=== PATIENT | female | born 1985 | race Caucasian/White ===

== ENCOUNTER 2017-05-15 09:51 | Emergency (ER) | payer MEDICAID ==
[2017-05-15] MEDS ORDERED: Acetaminophen/oxyCODONE 325-5 MG Tab PO ONE (10:25)
--- NOTE | 2017-05-15 10:29 | EDM.PDOC ---
ED HPI GENERAL MEDICAL PROBLEM - General Chief Complaint: ENT Problem Stated Complaint: TOOTH PAIN Time Seen by Provider: 05/15/17 10:26 Source of Information: Reports: Patient History Limitations: Reports: No Limitations - History of Present Illness INITIAL COMMENTS - FREE TEXT/NARRATIVE: pt has bilateral dental pain. She is rating her pain a 10. She has multiple carries. Onset: Gradual, Other (several days of pain) Duration: Day(s): Location: Reports: Face Associated Symptoms: Reports: No Other Symptoms Tooth/Teeth Pain Score (Numeric/FACES): 10 - Related Data Allergies Allergy/AdvReac Type Severity Reaction Status Date / Time bupivacaine HCl Allergy Severe Anaphylactic Verified 05/15/17 10:06 [From Marcaine] Shock sulfamethoxazole Allergy Severe Anaphylactic Verified 05/15/17 10:06 [From Bactrim] Shock triamcinolone acetonide Allergy Severe Anaphylactic Verified 05/15/17 10:06 [From Kenalog] Shock trimethoprim [From Bactrim] Allergy Severe Anaphylactic Verified 05/15/17 10:06 Shock amoxicillin [Amoxicillin] Allergy Hives Verified 05/15/17 10:06 Penicillins Allergy Hives Verified 05/15/17 10:06 Home Meds: Home Meds Albuterol Sulfate [Proair Hfa] 8.5 gm IH ASDIRECTED 05/24/13 [History] Albuterol [Ventolin HFA] 1 puff INH BID PRN 05/24/13 [History] Fluticasone/Salmeterol [Advair 100-50 Diskus] 1 puff INH BID 05/24/13 [History] [place]-3/DHA/Epa/Fish Oil [Fish Oil] 500 mg PO DAILY 05/24/13 [History] diphenhydrAMINE HCl [Benadryl] 25 mg PO QPM 05/24/13 [History] Dextroamphetamine/Amphetamine [Adderall] 30 mg PO DAILY 10/26/13 [History] Gabapentin [Neurontin] 600 mg PO TID 10/26/13 [History] Ibuprofen [Caldolor] 1 dose PO ASDIRECTED 02/03/14 [History] Pantoprazole Sodium [Protonix] 1 tab PO DAILY 05/15/17 [History] Past Medical History Respiratory History: Reports: Asthma Gastrointestinal History: Reports: Irritable Bowel Syndrome 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 Musculoskeletal History: Reports: Fibromyalgia Neurological History: Reports: Concussion, Headaches, Chronic Psychiatric History: Reports: Anxiety, PTSD - Past Surgical History GI Surgical History: Reports: Other (See Below) Female Surgical History: Reports: Oophorectomy, Tubal Ligation Social & Family History - Tobacco Use Smoking Status *Q: Heavy Tobacco Smoker Years of Tobacco use: 20 Packs/Tins Daily: 1 Used Tobacco, but Quit: No Second Hand Smoke Exposure: Yes - Alcohol Use Days Per Week of Alcohol Use: 0 - Recreational Drug Use Recreational Drug Use: Yes Recreational Drug Type: Reports: Marijuana/Hashish Recreational Drug Use Frequency: Weekly ED ROS ENT - Review of Systems Review Of Systems: See Below Constitutional: Reports: No Symptoms HEENT: Reports: Dental Pain Respiratory: Reports: No Symptoms Cardiovascular: Reports: No Symptoms Endocrine: Reports: No Symptoms GI/Abdominal: Reports: No Symptoms ED EXAM, ENT - Physical Exam Exam: See Below Text/Narrative:: pt arrived with bilateral dental pain. She has multiple carrious teeth and is now starting to have aklot of pain. Exam Limited By: No Limitations General Appearance: Alert Ears: Normal TMs Nose: Normal Inspection Mouth/Throat: Dental Pain, Dental Tenderness, Other (pt has multiple carrious teeth. ) Head: Atraumatic Neck: Other (mild glandular swelling. ) Respiratory/Chest: No Respiratory Distress Cardiovascular: Regular Rate, Rhythm GI/Abdominal: Soft, Non-Tender Course - Vital Signs Last Recorded V/S: Last Vital Signs Temp 36.1 C 05/15/17 10:05 Pulse 94 05/15/17 10:05 Resp 16 05/15/17 10:05 BP 162/104 H 05/15/17 10:05 Pulse Ox 100 05/15/17 10:05 - Orders/Labs/Meds Meds: Medications Discontinued Medications Generic Name Dose Route Start Last Admin Trade Name Freq PRN Reason Stop Dose Admin Oxycodone/Acetaminophen 1 tab 05/15/17 10:25 Percocet 325-5 Mg PO 05/15/17 10:26 ONETIME ONE - Re-Assessments/Exams Free Text/Narrative Re-Assessment/Exam: 05/15/17 10:36 pt was given a percocet 5/325 . Departure - Departure Time of Disposition: 10:27 Disposition: Home, Self-Care 01 Condition: Fair Clinical Impression: Pain, dental - Discharge Information Referrals: PCP,None [Primary Care Provider] - Forms: ED Department Discharge Care Plan Goals: dental referal, motrin 600mg tid, norco 5/325 q6h prn for pain # 10, keflex 500mg tid.
== END 2017-05-15 10:46 | disposition home or self-care (01) ==
LOC: JP.ED 09:51
DX: K08.89 Other specified disorders of teeth and supporting structures (principal); F17.210 Nicotine dependence, cigarettes, uncomplicated; Z79.899 Other long term (current) drug therapy; Z88.0 Allergy status to penicillin; Z88.1 Allergy status to other antibiotic agents; Z88.8 Allergy status to other drugs, medicaments and biological substances; Z88.2 Allergy status to sulfonamides
CPT/HCPCS: 99283; A9270

== ENCOUNTER 2017-06-09 12:43 | Emergency (ER) | payer MEDICAID ==
--- NOTE | 2017-06-09 14:14 | EDM.PDOC ---
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 Time Seen by Provider: 06/09/17 13:50 Source of Information: Reports: Patient History Limitations: Reports: No Limitations - History of Present Illness INITIAL COMMENTS - FREE TEXT/NARRATIVE: 32-year-old female is in to the emergency room basically for a urine test. For the past week she feels she's had breast tenderness, pelvic fullness, and intermittent spotting and cramping and wants to make sure she doesn't have an "ectopic ". She hasn't gone to the store to get a test because she couldn't get a ride. She also wants to be checked for ovarian cancer. I reviewed her past records, and I saw this patient a few years ago with a similar presentation where she demanded numerous tests including CT scans which were all normal. She just recently moved back to the area within the last few weeks. She denies any fevers or chills. Onset: Unknown/Unsure (Rate) - Related Data Allergies Allergy/AdvReac Type Severity Reaction Status Date / Time bupivacaine HCl Allergy Severe Anaphylactic Verified 06/09/17 13:15 [From Marcaine] Shock sulfamethoxazole Allergy Severe Anaphylactic Verified 06/09/17 13:15 [From Bactrim] Shock triamcinolone acetonide Allergy Severe Anaphylactic Verified 06/09/17 13:15 [From Kenalog] Shock trimethoprim [From Bactrim] Allergy Severe Anaphylactic Verified 06/09/17 13:15 Shock amoxicillin [Amoxicillin] Allergy Hives Verified 06/09/17 13:15 Penicillins Allergy Hives Verified 06/09/17 13:15 Home Meds: Home Meds Albuterol Sulfate [Proair Hfa] 8.5 gm IH ASDIRECTED 05/24/13 [History] Albuterol [Ventolin HFA] 1 puff INH BID PRN 05/24/13 [History] Fluticasone/Salmeterol [Advair 100-50 Diskus] 1 puff INH BID 05/24/13 [History] [place]-3/DHA/Epa/Fish Oil [Fish Oil] 500 mg PO DAILY 05/24/13 [History] diphenhydrAMINE HCl [Benadryl] 25 mg PO QPM 05/24/13 [History] Dextroamphetamine/Amphetamine [Adderall] 30 mg PO DAILY 10/26/13 [History] Gabapentin [Neurontin] 600 mg PO TID 10/26/13 [History] Ibuprofen [Caldolor] 1 dose PO ASDIRECTED 02/03/14 [History] Pantoprazole Sodium [Protonix] 1 tab PO DAILY 05/15/17 [History] Past Medical History Respiratory History: Reports: Asthma Gastrointestinal History: Reports: Irritable Bowel Syndrome 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 Musculoskeletal History: Reports: Fibromyalgia Neurological History: Reports: Concussion, Headaches, Chronic Psychiatric History: Reports: Anxiety, PTSD - Past Surgical History GI Surgical History: Reports: Other (See Below) Female Surgical History: Reports: Oophorectomy, Tubal Ligation Social & Family History - Tobacco Use Smoking Status *Q: Current Every Day Smoker Years of Tobacco use: 10 Packs/Tins Daily: 0.2 Used Tobacco, but Quit: No Second Hand Smoke Exposure: Yes - Alcohol Use Days Per Week of Alcohol Use: 0 - Recreational Drug Use Recreational Drug Use: Yes Recreational Drug Type: Reports: Marijuana/Hashish Recreational Drug Use Frequency: Weekly ED ROS GENERAL - Review of Systems Review Of Systems: See Below Constitutional: Reports: Malaise. Denies: Fever, Chills Respiratory: Denies: Shortness of Breath GI/Abdominal: Reports: Abdominal Pain, Nausea. Denies: Vomiting : Reports: Frequency, Incontinence Skin: Reports: No Symptoms Neurological: Denies: Headache ED EXAM, GI/ABD - Physical Exam Exam: See Below Exam Limited By: No Limitations General Appearance: Alert, No Apparent Distress Eyes: Bilateral: Normal Appearance Head: Atraumatic Respiratory/Chest: No Respiratory Distress, Lungs Clear Cardiovascular: Regular Rate, Rhythm GI/Abdominal Exam: Soft, Tender (A small amount of discomfort to palpation across the lower abdomen, no point tenderness or rebound) Course - Vital Signs Last Recorded V/S: Last Vital Signs Temp 97.7 F 06/09/17 13:22 Pulse 94 06/09/17 13:22 Resp 14 06/09/17 13:22 BP 146/113 H 06/09/17 13:22 Pulse Ox 96 06/09/17 13:22 - Orders/Labs/Meds Orders: Active Orders 24 hr Category Date Time Status HCG QUALITATIVE,URINE [URCHEM] Stat Lab 06/09/17 13:59 Ordered UA W/MICROSCOPIC [URIN] Urgent Lab 06/09/17 13:59 Ordered Labs: Laboratory Tests 06/09/17 06/09/17 Range/Units 13:59 13:59 Urine Color Yellow Urine Appearance Clear Urine pH 6.0 (4.5-8.0) Ur Specific [place] 1.020 (1.008-1.030) Urine Protein Negative (NEGATIVE) mg/dL Urine Glucose (UA) Normal (NEGATIVE) mg/dL Urine Ketones Negative (NEGATIVE) mg/dL Urine Occult Blood Negative (NEGATIVE) Urine Nitrite Negative (NEGATIVE) Urine Bilirubin Small (NEGATIVE) Urine Urobilinogen Normal (NORMAL) mg/dL Ur Leukocyte Esterase Negative (NEGATIVE) Urine RBC Not seen (0-5) Urine WBC 0-5 (0-5) Ur Epithelial Cells Moderate Amorphous Sediment Not seen Urine Bacteria Few Urine Mucus Moderate Urine HCG, Qual Negative - Re-Assessments/Exams Free Text/Narrative Re-Assessment/Exam: 06/09/17 14:16 A UA was obtained which was negative for infection or . I asked the patient to get a primary provider and recheck if symptoms are persistent. Departure - Departure Time of Disposition: 14:25 Disposition: Home, Self-Care 01 Condition: Good Clinical Impression: Pelvic pain - Discharge Information Instructions: Pelvic Pain, Female, [id number] Referrals: Joan Trujillo MD [Primary Care Provider] - Forms: ED Department Discharge Care Plan Goals: Tylenol or ibuprofen may help, continue activity as tolerated and recheck at the clinic if symptoms persist. - My Orders Last 24 Hours: My Active Orders 06/09/17 13:59 HCG QUALITATIVE,URINE [URCHEM] Stat UA W/MICROSCOPIC [URIN] Urgent - Assessment/Plan Last 24 Hours: My Active Orders 06/09/17 13:59 HCG QUALITATIVE,URINE [URCHEM] Stat UA W/MICROSCOPIC [URIN] Urgent
== END 2017-06-09 14:26 | disposition home or self-care (01) ==
LOC: JP.ED 12:43
DX: R10.2 Pelvic and perineal pain (principal); F17.210 Nicotine dependence, cigarettes, uncomplicated; Z79.899 Other long term (current) drug therapy; F41.9 Anxiety disorder, unspecified; Z88.8 Allergy status to other drugs, medicaments and biological substances; Z88.1 Allergy status to other antibiotic agents; Z88.0 Allergy status to penicillin
CPT/HCPCS: 81001; 81025; 99284

== ENCOUNTER 2017-06-20 16:54 | Emergency (ER) | payer MEDICAID ==
[2017-06-20] MEDS ORDERED: Lactated Ringers 1,000 ML IV ONE (18:03)
[2017-06-20] MEDS ORDERED: Metoclopramide 10 MG/2 ML SDV IVPUSH ONE (18:03)
[2017-06-20] MEDS ORDERED: Dicyclomine 10 MG Cap PO ONE (18:03)
[2017-06-20] MEDS ORDERED: Acetaminophen 500 MG Tab PO ONE (18:04)
--- NOTE | 2017-06-20 18:10 | EDM.PDOC ---
ED HPI GENERAL MEDICAL PROBLEM - General Chief Complaint: Gastrointestinal Problem Stated Complaint: ABD PAIN/VOMITING/DIARRHEA Time Seen by Provider: 06/20/17 17:55 Source of Information: Reports: Patient, Old Records, RN History Limitations: Reports: No Limitations - History of Present Illness INITIAL COMMENTS - FREE TEXT/NARRATIVE: 32 yo female developed nausea, vomiting and diarrhea last night that persists. Is dizzy with standing. No fever or bleeding. Unknown exposures. Abdominal cramping not resolved with ibuprofen before arrival. Has more diarrhea than vomiting. No recent antibiotics or hospitalizations. Onset: Gradual Onset Date: 06/19/17 Duration: Hour(s): (16), Constant Location: Reports: Abdomen Quality: Reports: Other (crampy) Severity: Moderate Improves with: Reports: None Worsens with: Reports: Eating Context: Reports: Sick Contact (uncertain of exposure) Associated Symptoms: Reports: Loss of Appetite, Nausea/Vomiting. 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 Abdomen Pain Score (Numeric/FACES): 10 - Related Data Allergies Allergy/AdvReac Type Severity Reaction Status Date / Time bupivacaine HCl Allergy Severe Anaphylactic Verified 06/20/17 17:30 [From Marcaine] Shock sulfamethoxazole Allergy Severe Anaphylactic Verified 06/20/17 17:30 [From Bactrim] Shock triamcinolone acetonide Allergy Severe Anaphylactic Verified 06/20/17 17:30 [From Kenalog] Shock trimethoprim [From Bactrim] Allergy Severe Anaphylactic Verified 06/20/17 17:30 Shock amoxicillin [Amoxicillin] Allergy Hives Verified 06/20/17 17:30 Penicillins Allergy Hives Verified 06/20/17 17:30 Home Meds: Home Meds Albuterol Sulfate [Proair Hfa] 8.5 gm IH ASDIRECTED 05/24/13 [History] Albuterol [Ventolin HFA] 1 puff INH BID PRN 05/24/13 [History] Fluticasone/Salmeterol [Advair 100-50 Diskus] 1 puff INH BID 05/24/13 [History] diphenhydrAMINE HCl [Benadryl] 25 mg PO QPM 05/24/13 [History] Dextroamphetamine/Amphetamine [Adderall] 30 mg PO DAILY 10/26/13 [History] Gabapentin [Neurontin] 600 mg PO TID 10/26/13 [History] Ibuprofen [Caldolor] 1 dose PO ASDIRECTED 02/03/14 [History] Pantoprazole Sodium [Protonix] 1 tab PO DAILY 05/15/17 [History] Past Medical History Respiratory History: Reports: Asthma Gastrointestinal History: Reports: Irritable Bowel Syndrome 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 Musculoskeletal History: Reports: Fibromyalgia Neurological History: Reports: Concussion, Headaches, Chronic Psychiatric History: Reports: Anxiety, PTSD - Past Surgical History GI Surgical History: Reports: Other (See Below) Female Surgical History: Reports: Oophorectomy, Tubal Ligation Social & Family History - Tobacco Use Smoking Status *Q: Unknown Ever Smoked ED ROS GENERAL - Review of Systems Review Of Systems: See Below Constitutional: Reports: Decreased Appetite HEENT: Reports: No Symptoms Respiratory: Reports: No Symptoms Cardiovascular: Reports: Lightheadedness Endocrine: Reports: No Symptoms GI/Abdominal: Reports: Abdominal Pain (crampy), Diarrhea, Decreased Appetite, Nausea, Vomiting. Denies: Black Stool, Bloody Stool, Constipation, Hematemesis , Hematochezia, Melena : Reports: No Symptoms Musculoskeletal: Reports: No Symptoms Skin: Reports: No Symptoms Neurological: Reports: No Symptoms ED EXAM, GI/ABD - Physical Exam Exam: See Below Exam Limited By: No Limitations General Appearance: Alert, WD/WN, No Apparent Distress Eyes: Bilateral: Normal Appearance, EOMI Ears: Normal External Exam, Normal Canal, Hearing Grossly Normal Nose: Normal Inspection, Normal Mucosa, No Blood Throat/Mouth: Normal Inspection, Normal Lips, Normal Oropharynx, Normal Voice, No Airway Compromise Head: Atraumatic, Normocephalic Neck: Normal Inspection, Supple, Non-Tender Respiratory/Chest: No Respiratory Distress, Lungs Clear, Normal Breath Sounds, No Accessory Muscle Use GI/Abdominal Exam: Normal Bowel Sounds, Soft, Non-Tender, No Distention. No: Guarding, Rigid, Rebound, Tender Back Exam: Normal Inspection Extremities: Normal Inspection, Normal Range of Motion, Non-Tender, No Pedal Edema Neurological: Alert, Oriented, CN II-XII Intact, Normal Cognition, No Motor/ Sensory Deficits Psychiatric: Normal Affect, Normal Mood Skin Exam: Warm, Dry, Intact, Normal Color, No Rash Course - Vital Signs Last Recorded V/S: Last Vital Signs Temp 36.7 C 06/20/17 17:27 Pulse 92 06/20/17 17:27 Resp 14 06/20/17 17:27 BP 151/106 H 06/20/17 17:27 Pulse Ox 97 06/20/17 17:27 - Orders/Labs/Meds Meds: Medications Discontinued Medications Generic Name Dose Route Start Last Admin Trade Name Joycelyn PRN Reason Stop Dose Admin Acetaminophen 1,000 mg 06/20/17 18:04 06/20/17 18:36 Tylenol Extra Strength PO 06/20/17 18:05 1,000 mg ONETIME ONE Administration Dicyclomine HCl 20 mg 06/20/17 18:03 06/20/17 18:42 Bentyl PO 06/20/17 18:04 20 mg ONETIME ONE Administration Diphenhydramine HCl 25 mg 06/20/17 18:31 06/20/17 18:38 Benadryl IVPUSH 06/20/17 18:32 25 mg ONETIME ONE Administration Lactated Ringer's 1,000 mls @ 1,000 mls/hr 06/20/17 18:03 06/20/17 18:19 Ringers, Lactated IV 06/20/17 19:02 1,000 mls/hr BOLUS ONE Administration Metoclopramide HCl 10 mg 06/20/17 18:03 06/20/17 18:20 Reglan IVPUSH 06/20/17 18:04 10 mg ONETIME ONE Administration Departure - Departure Time of Disposition: 19:20 Disposition: Home, Self-Care 01 Condition: Good Clinical Impression: Gastroenteritis - Discharge Information Referrals: Joan Trujillo MD [Primary Care Provider] - Forms: ED Department Discharge
[2017-06-20] MEDS ORDERED: diphenhydrAMINE 50 MG/ML SDV IVPUSH ONE (18:31)
== END 2017-06-20 19:30 | disposition home or self-care (01) ==
LOC: JP.ED 16:54
DX: K52.9 Noninfective gastroenteritis and colitis, unspecified (principal); F41.9 Anxiety disorder, unspecified; Z88.8 Allergy status to other drugs, medicaments and biological substances; Z88.2 Allergy status to sulfonamides; Z88.0 Allergy status to penicillin
CPT/HCPCS: 96361; 96374; 96375; 99284; A9270; J1200; J2765; J7120

== ENCOUNTER 2017-07-12 13:39 | Emergency (ER) | payer MEDICAID ==
[2017-07-12] MEDS ORDERED: Ondansetron 4 MG/2 ML SDV IVPUSH ONE (13:58)
--- NOTE | 2017-07-12 13:59 | EDM.PDOC ---
ED HPI GENERAL MEDICAL PROBLEM - General Chief Complaint: General Stated Complaint: POSSIBLE SIEZURE Time Seen by Provider: 07/12/17 13:45 Source of Information: Reports: Patient, EMS, RN History Limitations: Reports: Uncooperative (too intoxicated to answer questions accurately.) - History of Present Illness INITIAL COMMENTS - FREE TEXT/NARRATIVE: 32 yo female was sent in via EMS today by her significant other for extreme alcohol intoxication. Says she didn't intend to drink that much. Doesn't normally drink "that much". Has vomited several times before arrival. 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 (see below) (none) - Related Data Allergies Allergy/AdvReac Type Severity Reaction Status Date / Time bupivacaine HCl Allergy Severe Anaphylactic Verified 06/20/17 17:30 [From Marcaine] Shock sulfamethoxazole Allergy Severe Anaphylactic Verified 06/20/17 17:30 [From Bactrim] Shock triamcinolone acetonide Allergy Severe Anaphylactic Verified 06/20/17 17:30 [From Kenalog] Shock trimethoprim [From Bactrim] Allergy Severe Anaphylactic Verified 06/20/17 17:30 Shock amoxicillin [Amoxicillin] Allergy Hives Verified 06/20/17 17:30 Penicillins Allergy Hives Verified 06/20/17 17:30 Home Meds: Home Meds Albuterol Sulfate [Proair Hfa] 8.5 gm IH ASDIRECTED 05/24/13 [History] Albuterol [Ventolin HFA] 1 puff INH BID PRN 05/24/13 [History] Fluticasone/Salmeterol [Advair 100-50 Diskus] 1 puff INH BID 05/24/13 [History] diphenhydrAMINE HCl [Benadryl] 25 mg PO QPM 05/24/13 [History] Dextroamphetamine/Amphetamine [Adderall] 30 mg PO DAILY 10/26/13 [History] Gabapentin [Neurontin] 600 mg PO TID 10/26/13 [History] Ibuprofen [Caldolor] 1 dose PO ASDIRECTED 02/03/14 [History] Pantoprazole Sodium [Protonix] 1 tab PO DAILY 05/15/17 [History] Past Medical History Respiratory History: Reports: Asthma Gastrointestinal History: Reports: Irritable Bowel Syndrome 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 Musculoskeletal History: Reports: Fibromyalgia Neurological History: Reports: Concussion, Headaches, Chronic Psychiatric History: Reports: Anxiety, PTSD - Past Surgical History GI Surgical History: Reports: Other (See Below) Female Surgical History: Reports: Oophorectomy, Tubal Ligation ED ROS GENERAL - Review of Systems Review Of Systems: See Below Constitutional: Reports: Other (dizzy, drunk) HEENT: Reports: No Symptoms Respiratory: Reports: No Symptoms Cardiovascular: Reports: No Symptoms Endocrine: Reports: No Symptoms GI/Abdominal: Reports: Nausea, Vomiting : Reports: No Symptoms Musculoskeletal: Reports: No Symptoms Skin: Reports: No Symptoms Neurological: Reports: Other (intoxicated) ED EXAM, GENERAL - Physical Exam Exam: See Below Exam Limited By: No Limitations General Appearance: Alert, WD/WN, Mild Distress Eye Exam: Bilateral Eye: Normal Inspection Ears: Normal External Exam, Normal Canal, Hearing Grossly Normal, Normal TMs Ear Exam: Bilateral Ear: Auricle Normal, Canal Normal, TM normal Nose: Normal Inspection, Normal Mucosa, No Blood Throat/Mouth: Normal Inspection, Normal Lips, Normal Oropharynx, Normal Voice, No Airway Compromise Head: Atraumatic, Normocephalic Neck: Normal Inspection, Supple Respiratory/Chest: No Respiratory Distress, Lungs Clear, No Accessory Muscle Use Cardiovascular: Regular Rate, Rhythm GI/Abdominal: Normal Bowel Sounds, Soft, Non-Tender, Other (obese) Back Exam: Normal Inspection Extremities: Normal Inspection, Normal Range of Motion, Non-Tender, No Pedal Edema Neurological: Alert, Oriented, CN II-XII Intact, Normal Cognition Psychiatric: Normal Affect, Normal Mood Skin Exam: Warm, Dry, Intact, Normal Color, No Rash, Other (striae on abdomen) Lymphatic: No Adenopathy Course - Vital Signs Last Recorded V/S: Last Vital Signs Temp 35.9 C 07/12/17 13:50 Pulse 74 07/12/17 16:15 Resp 16 07/12/17 14:21 BP 126/96 H 07/12/17 16:15 Pulse Ox 99 07/12/17 16:15 - Orders/Labs/Meds Orders: Active Orders 24 hr Category Date Time Status Lactated Ringers [Ringers, Lactated] 1,000 ml Med 07/12/17 14:00 Active IV ASDIRECTED Medication Orders Lactated Ringer's (Ringers, Lactated) 1,000 mls @ 150 mls/hr IV ASDIRECTED LB Last Admin: 07/12/17 14:18 Dose: 150 mls/hr Labs: Laboratory Tests 07/12/17 07/12/17 07/12/17 Range/Units 13:53 14:07 14:07 WBC 6.2 (4.5-11.0) K/uL RBC 4.79 (3.30-5.50) M/uL Hgb 15.2 H (12.0-15.0) g/dL Hct 43.9 (36.0-48.0) % MCV 92 (80-98) fL MCH 32 H (27-31) pg MCHC 35 (32-36) % Plt Count 290 (150-400) K/uL Sodium 143 (140-148) mmol/L Potassium 3.9 (3.6-5.2) mmol/L Chloride 107 (100-108) mmol/L Carbon Dioxide 24 (21-32) mmol/L Anion Gap 11.8 (5.0-14.0) mmol/L BUN 10 (7-18) mg/dL Creatinine 0.7 (0.6-1.0) mg/dL Est Cr Clr Drug Dosing 101.90 mL/min Estimated GFR (MDRD) > 60 (>60) Glucose 94 (74-106) mg/dL Calcium 8.0 L (8.5-10.1) mg/dL Total Bilirubin 0.3 (0.2-1.0) mg/dL AST 15 (15-37) U/L ALT 22 (12-78) U/L Alkaline Phosphatase 57 (46-116) U/L Total Protein 6.9 (6.4-8.2) g/dL Albumin 3.8 (3.4-5.0) g/dL Globulin 3.1 (2.3-3.5) g/dL Albumin/Globulin Ratio 1.2 (1.2-2.2) Ethyl Alcohol 330 mg/dL Meds: Medications Generic Name Dose Route Start Last Admin Trade Name Freq PRN Reason Stop Dose Admin Lactated Ringer's 1,000 mls @ 150 mls/hr 07/12/17 14:00 07/12/17 14:18 Ringers, Lactated IV 150 mls/hr ASDIRECTED LB Administration Discontinued Medications Generic Name Dose Route Start Last Admin Trade Name Joycelyn PRN Reason Stop Dose Admin Ondansetron HCl 4 mg 07/12/17 13:58 07/12/17 14:18 Zofran IVPUSH 07/12/17 13:59 4 mg ONETIME ONE Administration Departure - Departure Time of Disposition: 16:28 Disposition: Home, Self-Care 01 Condition: Fair Clinical Impression: Acute alcohol intoxication Qualifiers: Complication of substance-induced condition: uncomplicated Qualified Code(s): F10.929 - Alcohol use, unspecified with intoxication, unspecified - Discharge Information Referrals: Debbie Us MD [Primary Care Provider] - Forms: ED Department Discharge - My Orders Last 24 Hours: My Active Orders 07/12/17 14:00 Lactated Ringers [Ringers, Lactated] 1,000 ml IV ASDIRECTED - Assessment/Plan Last 24 Hours: My Active Orders 07/12/17 14:00 Lactated Ringers [Ringers, Lactated] 1,000 ml IV ASDIRECTED
[2017-07-12] MEDS ORDERED: Lactated Ringers 1,000 ML IV SCH (14:00)
== END 2017-07-12 17:00 | disposition home or self-care (01) ==
LOC: JP.ED 13:39
DX: F10.120 Alcohol abuse with intoxication, uncomplicated (principal); Y90.8 Blood alcohol level of 240 mg/100 ml or more; F41.9 Anxiety disorder, unspecified; Z79.899 Other long term (current) drug therapy; Z88.0 Allergy status to penicillin; Z88.1 Allergy status to other antibiotic agents; Z88.8 Allergy status to other drugs, medicaments and biological substances; Z88.2 Allergy status to sulfonamides
CPT/HCPCS: 36415; 80053; 85027; 96374; 99284; G0480; J2405; J7120

== ENCOUNTER 2017-07-20 21:30 | Emergency (ER) | payer MEDICAID ==
--- NOTE | 2017-07-20 22:13 | EDM.PDOC ---
ED HPI GENERAL MEDICAL PROBLEM - General Chief Complaint: Head Injury Stated Complaint: FALL VIA [place]TH Time Seen by Provider: 07/20/17 21:30 Source of Information: Reports: Patient, EMS History Limitations: Reports: Intoxication - History of Present Illness INITIAL COMMENTS - FREE TEXT/NARRATIVE: 32-year-old female who was brought in by ambulance with acute intoxication and head injury. She claims that she tripped and bumped her head on the ground. She has a small hematoma on the right parietal scalp and a very tiny puncture wound on the right cheek. She is fairly intoxicated, this is her second visit this week for alcohol intoxication. She is oriented. Onset: Sudden - Related Data Allergies Allergy/AdvReac Type Severity Reaction Status Date / Time bupivacaine HCl Allergy Severe Anaphylactic Verified 07/20/17 21:39 [From Marcaine] Shock sulfamethoxazole Allergy Severe Anaphylactic Verified 07/20/17 21:39 [From Bactrim] Shock triamcinolone acetonide Allergy Severe Anaphylactic Verified 07/20/17 21:39 [From Kenalog] Shock trimethoprim [From Bactrim] Allergy Severe Anaphylactic Verified 07/20/17 21:39 Shock amoxicillin [Amoxicillin] Allergy Hives Verified 07/20/17 21:39 Penicillins Allergy Hives Verified 07/20/17 21:39 Home Meds: Home Meds Albuterol Sulfate [Proair Hfa] 8.5 gm IH ASDIRECTED 05/24/13 [History] Albuterol [Ventolin HFA] 1 puff INH BID PRN 05/24/13 [History] Fluticasone/Salmeterol [Advair 100-50 Diskus] 1 puff INH BID 05/24/13 [History] diphenhydrAMINE HCl [Benadryl] 25 mg PO QPM 05/24/13 [History] Gabapentin [Neurontin] 600 mg PO TID 10/26/13 [History] Ibuprofen [Caldolor] 1 dose PO ASDIRECTED 02/03/14 [History] Pantoprazole Sodium [Protonix] 1 tab PO DAILY 05/15/17 [History] Past Medical History Respiratory History: Reports: Asthma Gastrointestinal History: Reports: Irritable Bowel Syndrome 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 Musculoskeletal History: Reports: Fibromyalgia Neurological History: Reports: Concussion, Headaches, Chronic Psychiatric History: Reports: Anxiety, PTSD - Past Surgical History GI Surgical History: Reports: Other (See Below) Female Surgical History: Reports: Oophorectomy, Tubal Ligation Social & Family History - Family History Family Medical History: Noncontributory - Tobacco Use Smoking Status *Q: Current Every Day Smoker Years of Tobacco use: 15 Packs/Tins Daily: 1 - Caffeine Use Caffeine Use: Reports: Coffee - Recreational Drug Use Recreational Drug Use: Yes Recreational Drug Type: Reports: Marijuana/Hashish ED ROS GENERAL - Review of Systems Review Of Systems: See Below Constitutional: Denies: Fever Respiratory: Denies: Shortness of Breath GI/Abdominal: Denies: Nausea, Vomiting Neurological: Reports: Headache ED EXAM, HEAD INJURY - Physical Exam Exam: See Below Exam Limited By: No Limitations General Appearance: Alert, No Apparent Distress Head: Other (Patient has a small hematoma on the right parietal scalp, also a very tiny puncture wound on the right zygomatic area of the face. Underlying bones are nontender.) Eyes: Bilateral Eye: EOMI Respiratory: No Respiratory Distress (Patient has a small abrasion and hematoma on the right parietal scalp.) Neurologic: No Motor/Sensory Deficits Course - Vital Signs Last Recorded V/S: Last Vital Signs Temp 98.2 F 07/20/17 22:00 Pulse 99 07/20/17 22:00 Resp 16 07/20/17 22:00 BP 118/85 07/20/17 22:00 Pulse Ox 99 07/20/17 22:00 - Re-Assessments/Exams Free Text/Narrative Re-Assessment/Exam: 07/20/17 22:14 Was discussing with the patient what happened, and she started asking for Valium or something to "help her sleep". I told her I couldn't do that with the alcohol on board and that was inappropriate, but we should observe her for a while and possibly do imaging studies when she suddenly got up and grabbed her clothing and walked out AMA. Departure - Departure Time of Disposition: 21:58 Disposition: Against Medical Advice 07 Condition: Fair Clinical Impression: Alcohol intoxication Qualifiers: Complication of substance-induced condition: uncomplicated Qualified Code(s): F10.920 - Alcohol use, unspecified with intoxication, uncomplicated Hematoma of scalp Qualifiers: Encounter type: initial encounter Qualified Code(s): S00.03XA - Contusion of scalp, initial encounter Facial abrasion Qualifiers: Encounter type: initial encounter Qualified Code(s): S00.81XA - Abrasion of other part of head, initial encounter - Discharge Information Referrals: PCP,None [Primary Care Provider] - Care Plan Goals: I was unable to give the patient discharge instructions as she left AMA.
== END 2017-07-20 22:01 | disposition left against medical advice (07) ==
LOC: JP.ED 21:30
DX: S00.03XA Contusion of scalp, initial encounter (principal); S00.81XA Abrasion of other part of head, initial encounter; F10.120 Alcohol abuse with intoxication, uncomplicated; F17.210 Nicotine dependence, cigarettes, uncomplicated; J45.909 Unspecified asthma, uncomplicated; Z79.899 Other long term (current) drug therapy; Z88.8 Allergy status to other drugs, medicaments and biological substances; Z88.0 Allergy status to penicillin; Z88.1 Allergy status to other antibiotic agents; W22.8XXA Striking against or struck by other objects, initial encounter
CPT/HCPCS: 99284

== ENCOUNTER 2019-03-28 19:31 | Emergency (ER) | payer SELFPAY ==
--- NOTE | 2019-03-28 21:08 | EDM.PDOC ---
ED HPI GENERAL MEDICAL PROBLEM - General Chief Complaint: Respiratory Problem Stated Complaint: COUGH Time Seen by Provider: 03/28/19 19:43 Source of Information: Reports: Patient History Limitations: Reports: No Limitations - History of Present Illness INITIAL COMMENTS - FREE TEXT/NARRATIVE: chief complaint: chest pain with cough this is a 34 year old female present to the ER with painful cough. She has been sick for 2 weeks. intermittent fever and chills. denies any nausea, vomiting, diarrhea. not . 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 - Related Data Allergies Allergy/AdvReac Type Severity Reaction Status Date / Time bupivacaine HCl Allergy Severe Anaphylactic Verified 03/28/19 19:41 [From Marcaine] Shock sulfamethoxazole Allergy Severe Anaphylactic Verified 03/28/19 19:41 [From Bactrim] Shock triamcinolone acetonide Allergy Severe Anaphylactic Verified 03/28/19 19:41 [From Kenalog] Shock trimethoprim [From Bactrim] Allergy Severe Anaphylactic Verified 03/28/19 19:41 Shock amoxicillin [Amoxicillin] Allergy Hives Verified 03/28/19 19:41 Penicillins Allergy Hives Verified 03/28/19 19:41 Home Meds: Home Meds Albuterol Sulfate [Proair Hfa] 8.5 gm IH ASDIRECTED 05/24/13 [History] Albuterol [Ventolin HFA] 1 puff INH BID PRN 05/24/13 [History] Fluticasone/Salmeterol [Advair 100-50 Diskus] 1 puff INH BID 05/24/13 [History] diphenhydrAMINE HCl [Benadryl] 25 mg PO QPM 05/24/13 [History] Gabapentin [Neurontin] 600 mg PO TID 10/26/13 [History] Pantoprazole Sodium [Protonix] 1 tab PO DAILY 05/15/17 [History] Metoprolol Succinate 1 tab PO DAILY 03/28/19 [History] Past Medical History Respiratory History: Reports: Asthma Gastrointestinal History: Reports: Irritable Bowel Syndrome 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 Musculoskeletal History: Reports: Fibromyalgia Neurological History: Reports: Concussion, Headaches, Chronic Psychiatric History: Reports: Anxiety, PTSD - Past Surgical History GI Surgical History: Reports: Other (See Below) Female Surgical History: Reports: Oophorectomy, Tubal Ligation Social & Family History - Family History Family Medical History: Noncontributory - Tobacco Use Smoking Status *Q: Current Every Day Smoker Years of Tobacco use: 22 Packs/Tins Daily: 0.5 - Caffeine Use Caffeine Use: Reports: Coffee - Living Situation & Occupation Living situation: Reports: Single (recent moved to [place], [place] from [facility]) ED ROS GENERAL - Review of Systems Review Of Systems: See Below Constitutional: Reports: Fever, Decreased Appetite HEENT: Reports: No Symptoms, Other Respiratory: Reports: Wheezing, Pleuritic Chest Pain, Cough Cardiovascular: Reports: No Symptoms Endocrine: Reports: No Symptoms GI/Abdominal: Reports: No Symptoms : Reports: No Symptoms Musculoskeletal: Reports: Back Pain Skin: Reports: No Symptoms Neurological: Reports: No Symptoms Psychiatric: Reports: No Symptoms Hematologic/Lymphatic: Reports: No Symptoms Immunologic: Reports: No Symptoms ED EXAM, GENERAL - Physical Exam Exam: See Below Exam Limited By: No Limitations General Appearance: Alert, WD/WN, Mild Distress Eye Exam: Bilateral Eye: Normal Inspection Ears: Normal External Exam, Normal Canal, Hearing Grossly Normal, Normal TMs Ear Exam: Bilateral Ear: Auricle Normal, Canal Normal, TM normal Nose: Normal Inspection, Normal Mucosa, No Blood Throat/Mouth: Normal Inspection Head: Atraumatic, Normocephalic Neck: Normal Inspection, Supple, Non-Tender, Full Range of Motion Respiratory/Chest: No Accessory Muscle Use, Decreased Breath Sounds, Rhonchi ( bilateral), Wheezing (bilateral lower lobes) Cardiovascular: Regular Rate, Rhythm, No Murmur Peripheral Pulses: 2+: Radial (L), Radial (R) GI/Abdominal: Normal Bowel Sounds, Soft, Non-Tender, No Organomegaly, No Distention, No Abnormal Bruit, No Mass Back Exam: Other (mid back pain) Extremities: Normal Inspection, Normal Range of Motion, Non-Tender, Normal Capillary Refill, No Pedal Edema Neurological: Alert, Oriented, CN II-XII Intact, Normal Cognition, Normal Gait, Normal Reflexes, No Motor/Sensory Deficits Psychiatric: Normal Affect, Normal Mood Skin Exam: Warm, Dry, Intact, Normal Color, No Rash Lymphatic: No Adenopathy Course - Vital Signs Last Recorded V/S: Last Vital Signs Temp 36.7 C 03/28/19 19:51 Pulse 105 H 03/28/19 19:51 Resp 14 03/28/19 19:51 BP 115/78 03/28/19 19:51 Pulse Ox 98 03/28/19 19:51 - Orders/Labs/Meds Orders: Active Orders 24 hr Category Date Time Status Chest 2V [CR] Urgent Exams 03/28/19 20:09 Taken Meds: Medications Discontinued Medications Generic Name Dose Route Start Last Admin Trade Name Joycelyn PRN Reason Stop Dose Admin Azithromycin 500 mg 03/28/19 21:25 03/28/19 21:46 Zithromax PO 03/28/19 21:26 500 mg ONETIME ONE Administration Guaifenesin/Codeine Phosphate 10 ml 03/28/19 21:26 03/28/19 21:46 Robitussin Ac PO 03/28/19 21:27 10 ml ONETIME ONE Administration - Radiology Interpretation Free Text/Narrative:: chest xray is negative on wet read, will await final report. review with Ms. Lemus. Departure - Departure Time of Disposition: 21:03 Disposition: Home, Self-Care 01 Condition: Good Clinical Impression: Bronchitis - Discharge Information *PRESCRIPTION DRUG MONITORING PROGRAM REVIEWED*: No Instructions: Acute Bronchitis, Adult, [id number] Referrals: PCP,None [Primary Care Provider] - Forms: ED Department Discharge Care Plan Goals: acute Bronchitis -Zithromax 500mg take one today then 250 mg tablet every day for 4 days -Robitussin AC 10ml every 4 hours as needed for painful cough -Albuterol inhaler one every 4 hours as needed for wheezing or shortness of breath. rest, push fluids, take medications as directed follow up in Primary Care for recheck next week return to ER for any increased pain, fever, nausea, vomiting, diarrhea, rash or not improved. Sepsis Event Note - Evaluation Sepsis Screening Result: No Definite Risk - Focused Exam Vital Signs: Vital Signs Temp Pulse Resp BP Pulse Ox 03/28/19 19:51 36.7 C 105 H 14 115/78 98 Date Exam was Performed: 03/28/19 Time Exam was Performed: 23:12 - Problem List & Annotations (1) Bronchitis SNOMED Code(s): 93279920 Code(s): J40 - BRONCHITIS, NOT SPECIFIED ACUTE OR CHRONIC Status: Acute Priority: High - Problem List Review Problem List Initiated/Reviewed/Updated: Yes - My Orders Last 24 Hours: My Active Orders 03/28/19 20:09 Chest 2V [CR] Urgent - Assessment/Plan Last 24 Hours: My Active Orders 03/28/19 20:09 Chest 2V [CR] Urgent Assessment:: acute Bronchitis -Zithromax 500mg take one today then 250 mg tablet every day for 4 days -Robitussin AC 10ml every 4 hours as needed for painful cough -Albuterol inhaler one every 4 hours as needed for wheezing or shortness of breath. rest, push fluids, take medications as directed follow up in Primary Care for recheck next week return to ER for any increased pain, fever, nausea, vomiting, diarrhea, rash or not improved. Ms. Lemus has restricted MA, unable to pay the [facility] $145 dollars. will give Zithromax 500mg now and Robitussin 10 ml now. advise to have written prescription filled at pharmacy that she is restricted to , She agree with plan of care.
[2019-03-28] MEDS ORDERED: Azithromycin 250 MG Tab PO ONE (21:25)
[2019-03-28] MEDS ORDERED: Codeine/guaiFENesin 100mg-10 MG/5 ML Syrup 10 ML Cup PO ONE (21:26)
--- NOTE | 2019-03-30 09:39 | CR ---
CHEST: 2 view CLINICAL HISTORY:Wheezing and rhonchi COMPARISON:2008 FINDINGS: The heart size, pulmonary vascular and hilar structures are normal. No infiltrate effusion or pneumothorax is seen. IMPRESSION: No acute cardiopulmonary process. No significant change from prior study
== END 2019-03-28 21:47 | disposition home or self-care (01) ==
LOC: JP.ED 19:31
DX: J40 Bronchitis, not specified as acute or chronic (principal); J45.909 Unspecified asthma, uncomplicated; F41.9 Anxiety disorder, unspecified; Z79.899 Other long term (current) drug therapy; Z88.0 Allergy status to penicillin; Z88.8 Allergy status to other drugs, medicaments and biological substances
CPT/HCPCS: 71046; 99284; A9270